=== PATIENT | male | born 1985 | race Caucasian/White ===

== ENCOUNTER 2021-10-12 15:18 | Emergency (ER) | payer OTHER ==
[~2021-10-12] VITALS: Ht 175.3 cm; Wt 65.0 kg
[2021-10-12 15:39] VITALS: BP 117/84
--- NOTE | 2021-10-12 17:01 | RAD ---
EXAM: Left hand, 3 views. HISTORY: Puncture wound. COMPARISON: None. FINDINGS: 3 views of the left hand are obtained. There is no fracture, dislocation or subluxation. Th ere are few small benign bone islands. There is no radiodense foreign body. IMPRESSION: No acute osseous finding. Electronically signed by: Morenita Blair MD (10/12/2021 4:59 PM) [id number]
--- NOTE | 2021-10-12 17:20 | PHYS DOC ---
Past History Past Surgical History: Other Additional Past Surgical Histo: SURGERIES A BABY TO FUSE CRANIAL BONES (MEENA JONES APRN) General Adult EDM: Chief Complaint: HAND PROBLEM HPI: HPI: Patient is a 36-year-old male who presents to the emergency department for hand injury after drilling into his palm today at work. Patient denies any decreased range of motion decree sensation in his hand. Tetanus utd. (MEENA JONES APRN) Review of Systems: Review of Systems: Musculoskeletal: see HPI Integument:see HPI Neurologic: See HPI (MEENA JONES APRN) Allergies: Allergies: Allergies Coded Allergies Type Severity Reaction Last Updated Verified Penicillins Allergy Unknown 10/12/21 Yes fentanyl Allergy Unknown 10/12/21 Yes (MEENA JONES APRN) Physical Exam: PE: Constitutional: Well developed, well nourished, no acute distress, non-toxic appearance. [] HENT: Normocephalic, atraumatic, bilateral external ears normal, oropharynx moist, no oral exudates, nose normal. [] Eyes: PERRL, EOMI, conjunctiva normal, no discharge. [] Neck: Normal range of motion, no stridor Cardiovascular: Normal peripheral perfusion Lungs & Thorax: Normal work of breathing, no tachypnea Abdomen: Soft and flat Skin: Warm, dry, no erythema, no rash. [] Back: Normal range of motion Extremities: No tenderness, no cyanosis, no clubbing, ROM intact, no edema. Left hand: Small abrasion noted to palmar aspect of left hand proximal to the MCP joint left first finger, range of motion intact, neuro intact Neurologic: Alert and oriented X 3, normal motor function, normal sensory function, no focal deficits noted. [] Psychologic: Affect normal, judgement normal, mood normal. [] (MEENA JONES APRN) Current Patient Data: Vital Signs: Vital Signs Date Time Temp Pulse Resp B/P (MAP) Pulse Ox O2 Delivery O2 Flow Rate FiO2 10/12/21 15:39 97.6 85 18 117/84 (95) 98 (MEENA JONES APRN) EKG: EKG: [] (MEENA JONES APRN) Radiology/Procedures: Radiology/Procedures: [] (MEENA JONES APRN) Heart Score: C/O Chest Pain: N/A Risk Factors: Risk Factors: DM, Current or recent (<one month) smoker, HTN, HLP, family history of CAD, obesity. Risk Scores: Score 0 - 3: 2.5% MACE over next 6 weeks - Discharge Home Score 4 - 6: 20.3% MACE over next 6 weeks - Admit for Clinical Observation Score 7 - 10: 72.7% MACE over next 6 weeks - Early Invasive Strategies (MEENA JONES APRN) Course & Med Decision Making: Course & Med Decision Making Pertinent Labs and Imaging studies reviewed. (See chart for details) [] Patient presents to the emergency department for wound to his left hand after drilling into it. An x-ray was performed which showed no acute findings. Dressing was placed and patient is able to place an Kingsley wrap. Educated on RICE protocol. Advised to take Tylenol and ibuprofen for pain. I discussed with patient all findings and diagnostic testing as well as the need to follow-up with PCP for further evaluation and treatment or return to the ER if any new or worsening symptoms. Strict return precautions were also discussed at length. Patient voiced understanding and agreement with the plan. Patient is hemodynamically stable at the time of disposition. (MEENA JONES APRN) Dragon Disclaimer: Dragon Disclaimer: This electronic medical record was generated, in whole or in part, using a voice recognition dictation system. (MEENA JONES APRN) Attending Co-Sign The patient was seen and interviewed as well as examined at the bedside. The chart was reviewed. The case was discussed. Agree with the plan of care. (JOVITA SIMMONS DO) Departure Departure: Impression: Primary Impression: Puncture wound Disposition: HOME / SELF CARE / HOMELESS Condition: GOOD Referrals: PCP,NO (PCP) ATIF WELLINGTON Jr. DO Patient Instructions: Puncture Wound Additional Instructions: You are seen in the emergency department for a hand injury. An x-ray was performed which showed no acute findings. Please keep the abrasion clean and dry. You can apply Polysporin or bacitracin ointment to keep the dressing in place. This will likely improve over time. Your symptoms may be improved by something called the rice protocol. This is rest, ice, compression, elevation. Please follow-up when doing intense exercises that may make the pain worse. Sometimes gentle stretching can provide relief, but be careful to injury. It is important to perform gentle range of motion exercises to prevent stiff joints and chronic pain. Use ice packs over the affected areas to help decrease your pain. For the first 24 hours you can apply ice 20 minutes on 20 minutes off for 4 times per day. Sometimes compression such as the use of an Kingsley wrap can help with the swelling. You may also elevate the affected area to help with the swelling. Continue Tylenol and/or ibuprofen for your pain. Follow-up with your primary care provider within a week. Return to the emergency department if you develop any signs of infection such as redness/warmth/drainage/swelling, decreased range of motion or decrease sensation in your extremity. If you continue to have pain you may need to follow-up with orthopedic doctor, he can follow-up with Dr. Wellington's information is provided. MEENA JONES APRN Oct 12, 2021 17:20 JOVITA SIMMONS DO Oct 13, 2021 09:06
[2021-10-12] MEDS ORDERED: ACETAMINOPHEN 325 MG TABLET PO ONE (17:45)
== END 2021-10-12 17:55 | disposition home or self-care (01) ==
LOC: ER 15:18
DX: S61.432A Puncture wound without foreign body of left hand, initial encounter (principal); W27.8XXA Contact with other nonpowered hand tool, initial encounter; Y93.89 Activity, other specified; Y92.89 Other specified places as the place of occurrence of the external cause; Y99.8 Other external cause status
CPT/HCPCS: 73130; 99283